=== PATIENT | male | born 1980 | race Caucasian/White ===

== ENCOUNTER → 2016-03-05 08:14 | Emergency (ER) | payer SELFPAY | END | disposition home or self-care (01) | LOC: OHEAST 08:14 | DX: Z02.5 Encounter for examination for participation in sport (principal) ==

== ENCOUNTER 2019-04-12 16:09 | Emergency (ER) | payer OTHER ==
--- NOTE | 2019-04-12 16:33 | UC ---
Throat Pain/Nasal Michael HPI - HPI Summary HPI Summary: 38 yo male presents with sore throat. He tells me that for the last 2 days he has had a sore throat and headache. His girlfriend's son was diagnosed with strep yesterday and they have been sharing utensils. Pt has not taken anything OTC for his symptoms. He is eating, drinking, and tolerating po well, but it does hurt to swallow. He denies fever, chills, sinus symptoms, cough, rash. - History of Current Complaint Stated Complaint: SORE THROAT Time Seen by Provider: 04/12/19 16:33 Hx Obtained From: Patient Onset/Duration: Sudden Onset Severity: Moderate Pain Intensity: 6 Pain Scale Used: 0-10 Numeric - Allergies/Home Medications Allergies/Adverse Reactions: Allergies Allergy/AdvReac Type Severity Reaction Status Date / Time No Known Allergies Allergy Verified 04/12/19 17:03 Home Medications: Home Medications Aspirin TAB* [Aspirin 325 MG TAB*] 160 mg PO DAILY 04/12/19 [History Confirmed 04/12/19] PMH/Surg Hx/FS Hx/Imm Hx - Additional Past Medical History Additional PMH: None - Surgical History Surgical History: None - Family History Known Family History: Positive: None - Social History Occupation: Employed Full-time Lives: With Family Alcohol Use: Occasionally Substance Use Type: None Smoking Status (MU): Never Smoked Tobacco Review of Systems All Other Systems Reviewed And Are Negative: No Constitutional: Positive: Negative Skin: Positive: Negative Eyes: Positive: Negative ENT: Positive: Sore Throat Respiratory: Positive: Negative Cardiovascular: Positive: Negative Neurological/Mental Status: Positive: Headache Psychological: Positive: Negative Physical Exam - Summary Physical Exam Summary: GENERAL: NAD. WDWN. No pain distress. SKIN: No rashes, sores, lesions, or open wounds. HEENT: Head: AT/NC Eyes: Conjunctiva clear without inflammation or discharge. Ears: Hearing grossly normal. TMs intact, no bulging, erythema, or edema. Nose: Nasal mucosa pink and moist. NTTP maxillary and frontal sinus. Throat: Posterior oropharynx mild erythema and 2+ tonsillar enlargement. No exudates. Uvula midline. No hoarse voice or muffled voice. NECK: Supple. Mildly TTP tonsillar LAD. CHEST: CTAB. No r/r/w. No accessory muscle use. Breathing comfortably and in no distress. CV: RRR. Pulses intact. Cap refill <2seconds NEURO: Alert. PSYCH: Age appropriate behavior. Triage Information Reviewed: Yes Vital Signs: Vital Signs: Temp Pulse Resp BP Pulse Ox 102.1 F 82 16 131/83 99 04/12/19 16:56 04/12/19 16:56 04/12/19 16:56 04/12/19 16:56 04/12/19 16:56 Laboratory Tests 04/12/19 17:09 Group A Strep Rapid Positive H Vital Signs Reviewed: Yes Throat Pain/Nasal Course/Dx - Course Course Of Treatment: POC strep positive. In the clinic he was given 650mg tylenol for his fever. Rx for amoxicillin - Differential Dx/Diagnosis Provider Diagnosis: Strep throat Discharge ED - Sign-Out/Discharge Documenting (check all that apply): Patient Departure All imaging exams completed and their final reports reviewed: No Studies - Discharge Plan Condition: Stable Disposition: HOME Prescriptions: Amoxicillin PO (*) [Amoxicillin 500 MG CAP*] 500 mg PO Q12H #20 cap Patient Education Materials: Strep Throat (ED) Referrals: No Primary Care Phys,NOPCP [Primary Care Provider] - Additional Instructions: STREP TEST POSITIVE TODAY If you develop a fever, shortness of breath, chest pain, new or worsening symptoms - please call your PCP or go to the ED immediately. Your blood pressure was high at todays visit. Please see your primary provider within 4 weeks for recheck and re-evaluation. - Billing Disposition and Condition Condition: STABLE Disposition: Home
[2019-04-12 17:03] VITALS: BP 131/83
[2019-04-12] MEDS ORDERED: Acetaminophen TAB* 325 MG PO ONE (17:15)
== END 2019-04-12 17:30 | disposition home or self-care (01) ==
LOC: UCEAST 16:09
DX: J02.0 Streptococcal pharyngitis (principal); R51 Headache; Z79.82 Long term (current) use of aspirin
CPT/HCPCS: 87651; 99212; A9270-GY; G0463